=== PATIENT | female | born 1995 | race Hispanic/Latino ===

== ENCOUNTER 2017-11-02 18:26 | Emergency (ER) | payer SELFPAY ==
[2017-11-02 19:06] VITALS: BP 114/80
[2017-11-02 19:31] LABS: Basophils # (Auto) 0.1 K/mm3 (0.0-0.1); Eosinophils # (Auto) 0.4 K/mm3 (0.0-0.4); Eosinophils % (Auto) 8.4 % (0.0-4.3); Hematocrit 36.8 % (30.3-42.9); Hemoglobin 12.1 gm/dl (10.1-14.3); Lymphocytes # (Auto) 1.5 K/mm3 (1.2-5.4); Lymphocytes % (Auto) 29.1 % (13.4-35.0); Mean Corpuscular HGB Conc 33 % (30-34); Mean Corpuscular Hemoglobin 30 pg (28-32); Mean Corpuscular Volume 90 fl (79-97); Monocytes # (Auto) 0.5 K/mm3 (0.0-0.8); Monocytes % (Auto) 10.2 % (0.0-7.3); Platelet Count 212 K/mm3 (140-440); Red Cell Distribution Width 14.7 % (13.2-15.2)
[2017-11-02 19:50] LABS: BUN/Creatinine Ratio 12; Blood Urea Nitrogen 7 mg/dL (7-17); Calcium 9.4 mg/dL (8.4-10.2); Hemolysis Index 8
--- NOTE | 2017-11-02 21:01 | Emergency Department Report ---
ED General Adult HPI - General Chief complaint: Psych Stated complaint: AMS Time Seen by Provider: 11/02/17 19:54 Source: family, EMS Mode of arrival: Stretcher Limitations: Altered Mental Status - History of Present Illness Initial comments: 2-year-old female that presents to the ER from referral for passing out. Patient has been admitted for the past 5 days for catatonia. History is obtained from Wayne strauss and her mom. She is at a meeting today with her boyfriend and her mom. The patient then passed out for a couple seconds. Afterwards, her oxygen level continued to dip below normal limits. So, Wayne centers to the ER for evaluation. Patient has had decreased oral intake over the past week. Severity scale (0 -10): 0 - Related Data Allergies Allergy/AdvReac Type Severity Reaction Status Date / Time No Known Allergies Allergy Unverified 11/02/17 19:08 ED Review of Systems ROS: Stated complaint: AMS Other details as noted in HPI Comment: Unobtainable due to pts medical conditions ED Past Medical Hx - Past Medical History Hx Psychiatric Treatment: Yes Additional medical history: bipolar - Social History Smoking Status: Current Every Day Smoker ED Physical Exam - General Limitations: Altered Mental Status (intermittently will follow commands.) General appearance: alert, in no apparent distress - Head Head exam: Present: atraumatic, normocephalic - Eye Eye exam: Present: normal appearance - ENT ENT exam: Present: mucous membranes moist - Neck Neck exam: Present: normal inspection - Respiratory Respiratory exam: Present: normal lung sounds bilaterally. Absent: respiratory distress - Cardiovascular Cardiovascular Exam: Present: regular rate, normal rhythm. Absent: systolic murmur, diastolic murmur, rubs, gallop - GI/Abdominal GI/Abdominal exam: Present: soft, normal bowel sounds - Extremities Exam Extremities exam: Present: normal inspection - Back Exam Back exam: Present: normal inspection - Neurological Exam Neurological exam: Present: alert - Psychiatric Psychiatric exam: Present: flat affect - Skin Skin exam: Present: warm, dry, intact, normal color. Absent: rash ED Course Vital Signs 11/02/17 11/02/17 19:04 19:05 Temperature 98.0 F Pulse Rate 68 Respiratory 18 18 Rate Blood Pressure 114/80 [Left] O2 Sat by Pulse 99 Oximetry ED Medical Decision Making - Lab Data Result diagrams: 11/02/17 19:19 11/02/17 19:19 - Medical Decision Making 8-year-old female presents to the ER for medical clearance. Vitals are stable on presentation. Patient is well-appearing. She is nonverbal, but is intermittently interactive with an movements. Lab works unremarkable. Patient is refusing to urinate at this time. Low suspicion that this would change medical management. Patient has been admitted to a facility for the past week. No evidence of hypoxia at this time she is in no respiratory distress. The patient is medically cleared to return to [facility]. He'll continue to work with her hydration and oral intake. Critical care attestation.: If time is entered above; I have spent that time in minutes in the direct care of this critically ill patient, excluding procedure time. ED Disposition Clinical Impression: Encounter for medical screening examination Disposition: [id number] PSY HOSP/PSY UNIT Is pt being admited?: No Condition: Stable Additional Instructions: No emergent findings have been found. Patient is medically clear and safe to return to [facility]. Continue to work on her dietary intake. Referrals: PRIMARY CAREMD [Primary Care Provider] - 3-5 Days
== END 2017-11-02 22:44 ==
LOC: ED 18:26
DX: F31.9 Bipolar disorder, unspecified (principal); R55 Syncope and collapse; F17.200 Nicotine dependence, unspecified, uncomplicated; Z79.899 Other long term (current) drug therapy
CPT/HCPCS: 36415; 80048; 85025; 99285; G0480; 80320